=== PATIENT | female | born 1965 | race Two or more races ===

== ENCOUNTER 2018-05-17 09:14 | Inpatient (IN) | payer OTHER, MEDICAID ==
[2018-05-17] VITALS (7 sets, daily range): BP systolic 117–221; BP diastolic 55–113
[~2018-05-17] VITALS: Ht 172.7 cm; Wt 117.9 kg
[2018-05-17] MEDS ORDERED: SODIUM CHLORIDE 0.9% 1000ML BAG (SEPSIS BOLUS) IV ONE (09:30)
[2018-05-17 09:40] LABS: HEMATOCRIT. 30.1 % (36.0-48.0); HEMOGLOBIN. 9.7 g/dL (12.0-16.0); MEAN CORPUSCULAR HEMOGLOBIN 29.3 pg (28.0-32.0); MEAN CORPUSCULAR VOLUME 90.9 fL (81.0-99.0); MEAN PLATELET VOLUME 8.8 fl (7.4-10.4); PLATELET 81 x1000/uL (130-400); RED BLOOD CELL COUNT 3.31 mill/uL (4.2-5.4); RED CELL DISTRIBUTION WIDTH 20.1 % (11.6-14.6)
[2018-05-17] MEDS ORDERED: LORAZEPAM 2MG/ML CPJ IV ONE (09:45)
[2018-05-17 09:47] LABS: CHLORIDE 109 mEq/L (98-107)
[2018-05-17 09:50] LABS: D-DIMER 2.63 mg/L FEU (<0.50); INR 1.3; PROTHROMBIN TIME 13.1 sec (9.6-11.0)
[2018-05-17 09:51] LABS: ETHANOL BLOOD < 10 mg/dL
[2018-05-17 09:54] LABS: BG BASE EXCESS -11.1 mmol/L (-2.0-2.0); BG CARBOXYHEMOGLOBIN 0.3 % (0.5-1.5); BG DEOXYHEMOGLOBIN 6.2 % (0.0-5.0); BG HCO3 ACT 12.7 mmol/L (22.0-26.0); BG OXYGEN SATURATION 93.8 % (92.0-98.5); BG OXYHEMOGLOBIN 93.5 % (94.0-97.0); BG PCO2 22.6 mmHg (35.0-45.0); BG PH 7.367 (7.350-7.450); BG PO2 76.8 mmHg (75.0-100.0); BG SAMPLE SITE RIGHT BRACHIAL; BG TOTAL HEMOGLOBIN 9.3 g/dL (12.0-18.0); BG VENT MODE ROOM AIR
[2018-05-17 10:26] LABS: ATYPICAL LYMPHOCYTES 1; NUCLEATED RED BLOOD CELLS 3 /100 WBC
[2018-05-17 10:27] LABS: PLATELET ESTIMATE DECREASED
[2018-05-17] MEDS ORDERED: METRONIDAZOLE 500 MG PREMIX 100 ML IV ONE (10:30)
[2018-05-17] MEDS ORDERED: GENTAMICIN 80MG PREMIX 100 ML IV ONE (10:30)
[2018-05-17] MEDS ORDERED: VANCOMYCIN 1 G PREMIX 200 ML IV SCH (10:30)
[2018-05-17 11:10] LABS: CLARITY URINE CLOUDY (CLEAR); KETONES URINE NEGATIVE (NEGATIVE); LEUKOCYTE ESTERASE URINE 1+ (NEGATIVE); NITRITE URINE NEGATIVE (NEGATIVE); OCCULT BLOOD URINE 3+ (NEGATIVE); PH URINE 6.5 (4.5-8.0); PROTEIN URINE 3+ (NEGATIVE); UROBILINOGEN URINE 0.2 E.U./dL (0.2-1.0)
[2018-05-17 11:11] LABS: COLOR URINE BLOODY (YELLOW)
[2018-05-17 11:24] LABS: *AMPHETAMINES SCREEN URINE NEGATIVE (NEGATIVE); CANNABINOID URINE SCREEN NEGATIVE (NEGATIVE); METHADONE URINE SCREEN NEGATIVE (NEGATIVE); OPIATES URINE SCREEN PRESUMTIVE POSITIVE (NEGATIVE); PHENCYCLIDINE URINE SCREEN NEGATIVE (NEGATIVE)
[2018-05-17 11:26] LABS: *BARBITURATES SCREEN URINE NEGATIVE (NEGATIVE); *BENZODIAZEPINES SCREEN URINE NEGATIVE (NEGATIVE)
[2018-05-17 11:27] LABS: *COCAINE SCREEN URINE NEGATIVE (NEGATIVE)
[2018-05-17 13:58] LABS: BG BASE EXCESS -12.3 mmol/L (-2.0-2.0); BG CARBOXYHEMOGLOBIN 0.3 % (0.5-1.5); BG DEOXYHEMOGLOBIN 4.1 % (0.0-5.0); BG HCO3 ACT 11.8 mmol/L (22.0-26.0); BG METHEMOGLOBIN 0.3 % (0.0-1.5); BG OXYGEN SATURATION 95.9 % (92.0-98.5); BG OXYHEMOGLOBIN 95.3 % (94.0-97.0); BG PCO2 21.8 mmHg (35.0-45.0); BG PO2 95.1 mmHg (75.0-100.0); BG SAMPLE SITE RIGHT BRACHIAL; BG TOTAL HEMOGLOBIN 9.3 g/dL (12.0-18.0); BG VENT MODE NASAL CANNULA
[2018-05-17] MEDS ORDERED: MEROPENEM 1,000 MG in SODIUM CHLORIDE 0.9% 100 ML IV SCH (14:00)
[2018-05-17] MEDS ORDERED: DEXT 5%/0.45% NACL 1000ML 1,000 ML IV SCH (14:00)
[2018-05-17 15:19] LABS: HEMATOCRIT 27.2 % (36.0-48.0); HEMOGLOBIN 8.6 g/dL (12.0-16.0)
[2018-05-17] MEDS ORDERED: IOHEXOL-350 100 ML BOTTLE ONE (15:30)
[2018-05-17] MEDS ORDERED: FUROSEMIDE 40MG/4ML VIAL IVP NR (18:00)
[2018-05-17] MEDS ORDERED: SODIUM CHLORIDE 0.9% 1,000 ML IV SCH (18:00)
[2018-05-17] MEDS ORDERED: SODIUM BICARBONATE 8.4% 1 MEQ/ML 50ML SYR IV NR (18:00)
[2018-05-17] MEDS: PANTOPRAZOLE SODIUM 40 MG/VIAL IV SCH (18:06)
[2018-05-17] MEDS: MEROPENEM 1,000 MG in SODIUM CHLORIDE 0.9% 100 ML IV SCH (18:07)
[2018-05-17] MEDS: VANCOMYCIN 1250MG in DEXTROSE 5% WATER 250ML IV SCH (18:08)
[2018-05-17] MEDS ORDERED: PAMIDRONATE DISODIUM 90 MG in SODIUM CHLORIDE 0.9% 1,000 ML IV SCH (19:00)
[2018-05-17] MEDS: CITRIC ACID/SODIUM CITRATE SOLN 30ML UDC PO SCH (21:30)
[2018-05-17] MEDS ORDERED: IPRATROPIUM/ALBUTEROL 0.5-3(2.5)MG/3ML NEB INH PRN (21:45)
[2018-05-17] MEDS ORDERED: ONDANSETRON HCL 4MG/2ML INJ IV PRN (21:45)
[2018-05-17] MEDS ORDERED: DIPHENHYDRAMINE 50MG/ML VIAL IV PRN (21:45)
[2018-05-17] MEDS ORDERED: ACETAMINOPHEN 650MG SUPP PR PRN (21:45)
[2018-05-17 23:27] LABS: HEMATOCRIT 25.4 % (36.0-48.0); HEMOGLOBIN 8.3 g/dL (12.0-16.0)
[2018-05-18] VITALS (35 sets, daily range): BP systolic 93–158; BP diastolic 19–81
[2018-05-18] MEDS: MEROPENEM 1,000 MG in SODIUM CHLORIDE 0.9% 100 ML IV SCH ×3 (01:59→18:10)
[2018-05-18 06:29] LABS: CHLORIDE 116 mEq/L (98-107)
[2018-05-18 06:44] LABS: PHOSPHORUS 2.2 mg/dL (2.5-4.9)
[2018-05-18 07:37] LABS: HEMATOCRIT. 25.1 % (36.0-48.0); HEMOGLOBIN. 8.3 g/dL (12.0-16.0); MEAN CORPUSCULAR HEMOGLOBIN 30.1 pg (28.0-32.0); MEAN CORPUSCULAR VOLUME 91.2 fL (81.0-99.0); MEAN PLATELET VOLUME 9.2 fl (7.4-10.4); PLATELET 64 x1000/uL (130-400); RED BLOOD CELL COUNT 2.76 mill/uL (4.2-5.4); RED CELL DISTRIBUTION WIDTH 19.2 % (11.6-14.6)
[2018-05-18] MEDS ORDERED: FUROSEMIDE 40MG/4ML VIAL IVP NR (08:45)
[2018-05-18 09:41] LABS: BG DEOXYHEMOGLOBIN 5.5 % (0.0-5.0); BG FRACTION INSPIRED OXYGEN 28; BG HCO3 ACT 18.8 mmol/L (22.0-26.0); BG METHEMOGLOBIN 0.4 % (0.0-1.5); BG OXYGEN SATURATION 94.5 % (92.0-98.5); BG OXYHEMOGLOBIN 94.1 % (94.0-97.0); BG PCO2 30.2 mmHg (35.0-45.0); BG PH 7.412 (7.350-7.450); BG SAMPLE SITE RIGHT RADIAL; BG TOTAL HEMOGLOBIN 8.8 g/dL (12.0-18.0); BG VENT MODE NASAL CANNULA
[2018-05-18] MEDS: DEXT 5%/0.45% NACL 1000ML 1,000 ML IV SCH ×3 (09:57→23:03)
[2018-05-18] MEDS ORDERED: KCL 20MEQ/100ML PREMIX 100 ML IV NR (10:00)
[2018-05-18 10:04] LABS: T4 FREE 1.24 ng/dL (0.76-1.46)
[2018-05-18] MEDS: CITRIC ACID/SODIUM CITRATE SOLN 30ML UDC PO SCH ×3 (10:48→18:10)
[2018-05-18] MEDS: PANTOPRAZOLE SODIUM 40 MG/VIAL IV SCH (10:48)
[2018-05-18 10:59] LABS: NUCLEATED RED BLOOD CELLS 2 /100 WBC; PLATELET ESTIMATE DECREASED
[2018-05-18] MEDS ORDERED: DILTIAZEM HCL 125 MG in DEXT 5% WATER 100 ML IV SCH (11:00)
[2018-05-18] MEDS ORDERED: POTASSIUM PHOS,M-BASIC-D-BASIC 30 MMOL in DEXT 5% WATER 500 ML IV ONE (11:00)
[2018-05-18] MEDS: VANCOMYCIN 1250MG in DEXTROSE 5% WATER 250ML IV SCH (12:18)
[2018-05-18] MEDS ORDERED: LORAZEPAM 2MG/ML CPJ IV PRN (13:30)
[2018-05-18] MEDS: MORPHINE SULFATE 4 MG/ML CPJ (NOT FOR IM USE) IV PRN ×2 (13:38→22:48)
[2018-05-18 17:42] LABS: CREATINE KINASE 21 IU/L (26-192); CREATINE KINASE MB FRACTION < 1.0 ng/mL (0.5-3.6)
[2018-05-19] VITALS (13 sets, daily range): BP systolic 94–120; BP diastolic 47–83
[2018-05-19] MEDS: MEROPENEM 1,000 MG in SODIUM CHLORIDE 0.9% 100 ML IV SCH ×3 (02:09→17:53)
[2018-05-19 02:33] LABS: CREATINE KINASE 17 IU/L (26-192)
[2018-05-19 02:35] LABS: CREATINE KINASE MB FRACTION < 1.0 ng/mL (0.5-3.6)
[2018-05-19] MEDS: DEXT 5%/0.45% NACL 1000ML 1,000 ML IV SCH (04:55)
[2018-05-19 05:27] LABS: CANCER ANTIGEN 125 345.7 U/mL (0.0-38.1)
[2018-05-19] MEDS: VANCOMYCIN 1250MG in DEXTROSE 5% WATER 250ML IV SCH (05:44)
[2018-05-19 06:52] LABS: HEMATOCRIT. 24.3 % (36.0-48.0); HEMOGLOBIN. 7.6 g/dL (12.0-16.0); MEAN CORPUSCULAR HEMOGLOBIN 28.9 pg (28.0-32.0); RED BLOOD CELL COUNT 2.64 mill/uL (4.2-5.4); RED CELL DISTRIBUTION WIDTH 20.6 % (11.6-14.6)
[2018-05-19 07:02] LABS: CHLORIDE 118 mEq/L (98-107)
[2018-05-19 07:22] LABS: PHOSPHORUS 3.9 mg/dL (2.5-4.9)
[2018-05-19 07:25] LABS: CREATINE KINASE 25 IU/L (26-192)
[2018-05-19 07:28] LABS: CREATINE KINASE MB FRACTION < 1.0 ng/mL (0.5-3.6)
[2018-05-19 07:32] LABS: PLATELET 46 x1000/uL (130-400)
[2018-05-19] MEDS: MORPHINE SULFATE 4 MG/ML CPJ (NOT FOR IM USE) IV PRN ×3 (08:00→17:54)
[2018-05-19] MEDS: PANTOPRAZOLE SODIUM 40 MG/VIAL IV SCH (08:13)
[2018-05-19] MEDS: CITRIC ACID/SODIUM CITRATE SOLN 30ML UDC PO SCH ×3 (08:14→17:53)
[2018-05-19 08:52] LABS: NUCLEATED RED BLOOD CELLS 5 /100 WBC
[2018-05-19 08:53] LABS: PLATELET ESTIMATE MARKEDLY DECREASED
[2018-05-19] MEDS: DILTIAZEM HCL 60MG TABLET NG SCH ×2 (09:15→21:42)
[2018-05-19] MEDS ORDERED: POTASSIUM CHLORIDE 20MEQ/PACKET NG NR (10:00)
[2018-05-19] MEDS: DEXT 5%/0.2% NACL 1,000 ML IV SCH ×2 (13:21→23:53)
[2018-05-20] VITALS (15 sets, daily range): BP systolic 61–109; BP diastolic 17–65
[2018-05-20] MEDS: MORPHINE SULFATE 4 MG/ML CPJ (NOT FOR IM USE) IV PRN ×4 (00:24→13:12)
[2018-05-20] MEDS: MEROPENEM 1,000 MG in SODIUM CHLORIDE 0.9% 100 ML IV SCH (02:06)
[2018-05-20 08:18] LABS: A/G RATIO 0.5 (0.7-1.7); ALBUMIN 1.9 g/dL (2.9-4.4); ALPHA-1-GLOBULIN 0.4 g/dL (0.0-0.4); ALPHA-2-GLOBULIN 0.5 g/dL (0.4-1.0); BETA GLOBULIN 0.9 g/dL (0.7-1.3); GAMMA GLOBULINS 2.2 g/dL (0.4-1.8); GLOBULIN TOTAL 4.1 g/dL (2.2-3.9); M-SPIKE Not Observed g/dL (Not Observed); VITAMIN D 25-OH 16.2 ng/mL (30.0-100.0)
[2018-05-20] MEDS: DILTIAZEM HCL 60MG TABLET NG SCH (08:26)
[2018-05-20] MEDS: PANTOPRAZOLE SODIUM 40 MG/VIAL IV SCH (08:26)
[2018-05-20] MEDS: CITRIC ACID/SODIUM CITRATE SOLN 30ML UDC PO SCH (08:27)
[2018-05-21] VITALS (12 sets, daily range): BP systolic 55–68; BP diastolic 31–97
[2018-05-22] VITALS: BP 51/27
== END 2018-05-22 00:21 | disposition expired | DRG 720 ==
LOC: ER 09:14 → 3WST 12:21 → EDBEDREQ 12:37 → EDBEDREQTM 12:37 → ENRESERV 13:58
PROVIDERS: ADMIT Internal Medicine; ATTEND Internal Medicine
DX: A41.9 Sepsis, unspecified organism (principal); J96.00 Acute respiratory failure, unspecified whether with hypoxia or hypercapnia; J69.0 Pneumonitis due to inhalation of food and vomit; G93.41 Metabolic encephalopathy; E43 Unspecified severe protein-calorie malnutrition; E87.2 Acidosis; N17.9 Acute kidney failure, unspecified; R16.0 Hepatomegaly, not elsewhere classified; I46.9 Cardiac arrest, cause unspecified; C78.00 Secondary malignant neoplasm of unspecified lung; E83.39 Other disorders of phosphorus metabolism; E83.52 Hypercalcemia; R65.20 Severe sepsis without septic shock; Z66 Do not resuscitate; C80.1 Malignant (primary) neoplasm, unspecified; Z51.5 Encounter for palliative care; R74.0 Nonspecific elevation of levels of transaminase and lactic acid dehydrogenase [LDH]; E66.9 Obesity, unspecified; E87.6 Hypokalemia; C78.7 Secondary malignant neoplasm of liver and intrahepatic bile duct; D56.9 Thalassemia, unspecified; D69.6 Thrombocytopenia, unspecified; E78.1 Pure hyperglyceridemia; N39.0 Urinary tract infection, site not specified; R31.0 Gross hematuria; Z82.49 Family history of ischemic heart disease and other diseases of the circulatory system; Z92.21 Personal history of antineoplastic chemotherapy; Z85.028 Personal history of other malignant neoplasm of stomach; Z68.39 Body mass index [BMI] 39.0-39.9, adult
CPT/HCPCS: 36415; 36600; 71045; 71260; 74177; 78580; 80048; 80061; 80202; 80305; 80320; 82105; 82140; 82306; 82375; 82378; 82550; 82553; 82805; 82962; 83036; 83605; 83735; 83880; 83970; 84100; 84145; 84155; 84165; 84439; 84443; 84484; 85014; 85018; 85379; 86301; 86304; 93005; 93306; 93970; 96361; 96365; 96368; 96375; 99291; A6261; C9113; J1580; J1940; J2060; J2185; J2270; J2430; J3370; J3480; J3490; J7030; J7040; J7050; J7060; Q9967; A4315; G0480